=== PATIENT | female | born 1955 | race Caucasian/White ===

== ENCOUNTER → 2023-09-07 10:03 | Outpatient (REF) | payer OTHER, MEDICARE, SELFPAY | LOC: RAD 10:03 | PROVIDERS: ATTENDING PHYSICIAN Internal Medicine Rheumatology; FAMILY PHYSICIAN Nurse Practitioner Family; REFERRING PHYSICIAN Internal Medicine | DX: M47.816 Spondylosis without myelopathy or radiculopathy, lumbar region (principal); M54.50 Low back pain, unspecified | CPT/HCPCS: 72110 ==

== ENCOUNTER → 2023-10-18 07:59 | Outpatient (REF) | payer OTHER, MEDICARE, SELFPAY | LOC: RAD 07:59 | PROVIDERS: ATTENDING PHYSICIAN Nurse Practitioner Family | DX: M85.80 Other specified disorders of bone density and structure, unspecified site (principal); M81.0 Age-related osteoporosis without current pathological fracture | CPT/HCPCS: 77080 ==

== ENCOUNTER → 2024-02-24 07:30 | Outpatient (REF) | payer OTHER, SELFPAY | LOC: RAD 07:30 | PROVIDERS: ATTENDING PHYSICIAN Orthopaedic Surgery; FAMILY PHYSICIAN Nurse Practitioner Family | DX: Z96.642 Presence of left artificial hip joint (principal); M24.452 Recurrent dislocation, left hip | CPT/HCPCS: 73700 ==

== ENCOUNTER → 2024-08-14 12:08 | Outpatient (REF) | payer OTHER, SELFPAY | LOC: WDC 12:08 | PROVIDERS: ATTENDING PHYSICIAN Nurse Practitioner Family | DX: Z12.31 Encounter for screening mammogram for malignant neoplasm of breast (principal) | CPT/HCPCS: 77063; 77067 ==

== ENCOUNTER → 2024-08-21 09:50 | Outpatient (REF) | payer OTHER, SELFPAY | LOC: MRI 3T 09:50 | PROVIDERS: ATTENDING PHYSICIAN Otolaryngology | DX: H91.22 Sudden idiopathic hearing loss, left ear (principal) | CPT/HCPCS: 70553 ==

== ENCOUNTER 2024-09-04 10:54 | Outpatient (RCR) | payer OTHER, SELFPAY ==
[2024-08-14] MEDS: VENOFER 110 MG IV (14:08)
[2024-08-14 14:17] VITALS: BP 168/88
[2024-08-14 15:27] VITALS: BP 153/87
[2024-08-21 11:43] VITALS: BP 141/92
[2024-08-21] MEDS: VENOFER 110 MG IV (11:45)
[2024-08-21 13:03] VITALS: BP 146/84
[2024-08-27 08:01] VITALS: BP 135/87
[2024-08-27] MEDS: VENOFER 110 MG IV (08:17)
[2024-08-27 09:31] VITALS: BP 144/80
[2024-09-04 11:10] VITALS: BP 182/85
[2024-09-04] MEDS: VENOFER 110 MG IV (11:24)
[2024-09-04 13:00] VITALS: BP 143/83
== END 2024-09-05 09:16 | disposition home or self-care (01) ==
LOC: OID 10:54
PROVIDERS: ATTENDING PHYSICIAN Internal Medicine Hematology & Oncology
DX: D50.9 Iron deficiency anemia, unspecified (principal); Z79.01 Long term (current) use of anticoagulants
CPT/HCPCS: 96365; J1756

== ENCOUNTER 2024-09-11 10:10 | Outpatient (RCR) | payer OTHER, SELFPAY ==
[2024-09-11] MEDS: VENOFER 110 MG IV (10:42)
[2024-09-11 11:02] VITALS: BP 164/90
[2024-09-11 12:20] VITALS: BP 141/77
== END 2024-10-05 23:59 | disposition home or self-care (01) ==
LOC: OID 10:10
PROVIDERS: ATTENDING PHYSICIAN Internal Medicine Hematology & Oncology
DX: D50.9 Iron deficiency anemia, unspecified (principal); Z79.01 Long term (current) use of anticoagulants
CPT/HCPCS: 96365; J1756

== ENCOUNTER → 2024-09-19 14:15 | Outpatient (REF) | payer OTHER, SELFPAY | LOC: RAD 14:15 | PROVIDERS: ATTENDING PHYSICIAN Internal Medicine Hematology & Oncology; FAMILY PHYSICIAN Nurse Practitioner Family | DX: I82.402 Acute embolism and thrombosis of unspecified deep veins of left lower extremity (principal); D75.838 Other thrombocytosis; D50.9 Iron deficiency anemia, unspecified | CPT/HCPCS: 71275; 74177; Q9967 ==

== ENCOUNTER → 2024-09-26 10:24 | Outpatient (REF) | payer OTHER, SELFPAY | LOC: HWRCS 10:24 | PROVIDERS: ATTENDING PHYSICIAN Internal Medicine Cardiovascular Disease; FAMILY PHYSICIAN Nurse Practitioner Family | DX: I31.39 Other pericardial effusion (noninflammatory) (principal) | CPT/HCPCS: 93306 ==

== ENCOUNTER 2024-12-02 10:55 | Emergency (ER) | payer OTHER, SELFPAY ==
[2024-12-02 10:58] VITALS: BP 184/103
[2024-12-02 11:23] VITALS: BMI 24.7
--- NOTE | 2024-12-02 11:43 | ED.GENMED ---
History of Present Illness
General
Chief Complaint: Allergic Reaction
Source: patient
Exam Limitations: none
Time Seen by Provider: 12/02/24 11:19
History of Present Illness
History of Present Illness:
See MDM
Past History
Past History
ED Past Medical History: HTN, Psychiatric and Other (Pylonephritis, peritonitis, ileous, Sepsis)
ED Past Surgical History: Appendectomy, Orthopedic and Other
Social History
Tobacco: Non-smoker
Alcohol: None
Personal:
Living: with family
Employment: Employed ( ICU nurse)
Phy Exam
Physical Exam
Physical Exam:
See MDM
Course
Orders/Labs/Results
Orders:
Orders
12/02/24 11:43
Dexamethasone Sod Phosphate [Decadron] 10 mg IV NOW STA
12/02/24 11:49
Complete Blood Count/With Diff Urgent
Comprehensive Metabolic Panel Urgent
Abnormal Lab Results
12/02/24
11:49
WBC 12.6 H 10^3/uL
(4.8-10.8)
RDW 15.6 H %
(11.5-14.5)
Abs Immat Gran (auto) 0.1 H 10^3/uL
(0-0.05)
Absolute Neuts (auto) 11.0 H 10^3/uL
(1.4-6.5)
Neutrophils % 87.1 H %
(42.2-75.2)
Lymphocytes % 9.3 L %
(20.5-51.1)
Glucose 105 H mg/dl
(70-99)
12/02/24 11:49
12/02/24 11:49
Vital Signs
Initial and Last Documented VS:
Initial Vital Signs
Temp Pulse Resp BP Pulse Ox
98.3 F 81 18 184/103 94
12/02/24 10:58 12/02/24 10:58 12/02/24 10:58 12/02/24 10:58 12/02/24 10:58
Last Documented Vital Signs
Temp Pulse Resp BP Pulse Ox
98.3 F 81 18 128/80 97
12/02/24 10:58 12/02/24 10:58 12/02/24 10:58 12/02/24 12:00 12/02/24 12:01
MDM/Problems Addressed
Differential Diagnosis Includes:
HPI and MDM Narrative:
69-year-old female presenting with generalized rash. She noted a few days ago and was seen in urgent care. She was started on steroids which seem to help. She followed up with her PCP and was placed on a higher dose of steroid. She is currently
tapering her meds and the rash is gotten worse. She denies any new detergents or other possibilities for allergic reaction. However, she was placed on Coreg as of July. Although less likely, we did discuss that this could be the issue. Her
blood pressure has been somewhat uncontrolled and she was recently started on losartan as well. However, the losartan was introduced after the rash started. In attempt to not make too many medication changes, we discussed holding off the Coreg for
now and sticking with losartan. Will increase steroids again. She has no red flags as far as the rash goes. No mucosal membrane involvement and no fevers.
Physical exam
General: Well appearing and non-toxic
HEENT: protecting airway
Neck: appears supple
CV: No evidence of cyanosis
Resp: No accessory muscle use
Abd: Non-distended
Extremities: No deformities
Neuro: alert
Psych: Normal affect
Skin: Urticaria to extremities, flank and back
Problems Addressed including Acute and Chronic Conditions affecting care:
1. Urticarial rash
Acuity: acute
Prognosis: stable
Details: Likely allergic. Will increase the steroids again. Discussed follow-up with dermatology
Updates
On reassessment, patient feeling better and feels comfortable at home. She feels comfortable going home and will follow-up with dermatology
Differential Diagnosis (but not limited to): Urticaria, allergic reaction, medication reaction
Testing considered: Autoimmune testing but discussed this should be done as an outpatient
Drug therapy (if applicable): OTC meds, please see d/c instruction regarding Rx drugs
Amount and/or Complexity of Data Reviewed
Clinical info obtained from: Patient
External data reviewed: N/A
Labs I independently reviewed (but not limited to): Expected leukocytosis given recent steroid use
Radiology: N/A
Pulse Ox: not hypoxic
EKG independently reviewed: N/A
Cop Winder: N/A
Critical Care: N/A
Risk of Complication:
Social Determinants of health: Good social support
Discussed with other providers: N/A
Escalation of Care includes Admit/Obs: After being observed in the Emergency Department, pt stable for discharge.
Occasional wrong word or 'sound a like' substitutions may have occurred due to the inherent limitations of voice recognition software. Read the chart carefully and recognize, using context, where substitutions have occurred.
*Critical Care Note
Total Time (30-74mins, 75-104mins- exclusive of procedures): Not Applicable
ED Attending Note
-
Portions of this chart may have been created with voice recognition software.� Occasional wrong word or��sound alike� substitutions may have occurred due to the inherent limitations of voice recognition software.
Discharge Plan
Departure
Patient Disposition: Home (Routine Discharge)
Date of Disposition: 12/02/24
Time of Disposition: 13:30
Patient with high blood pressure during this ER visit?: No
Discharge Problem:
Acute urticaria
Instructions: Arjun (DC)
Prescriptions:
New
prednisone 10 mg tablet
See Rx Instructions .ROUTE .COMPLEX Qty: 45 0RF
Rx Instructions:
5 tabs day 1-3, 4 tabs day 4-6, 3 tabs day 7-9, 2 tabs day 10-12, 1 tab day 13-15
No Action
loratadine 10 MG tablet
10 mg PO DAILY Qty: 0
fluticasone propionate 1 SPRAY spray,suspension
2 spray intranasal DAILY
acyclovir 800 MG tablet
800 mg PO DAILY
cholecalciferol (vitamin D3) 2,000 UNITS tablet
2,000 unit PO DAILY
multivitamin Tablet
1 tab PO DAILY
buspirone 15 mg Tablet
15 mg PO DAILY
Linzess 290 mcg Capsule
290 mcg PO DAILY
magnesium 500 mg Tablet
500 mg PO MOWEFR
levothyroxine 25 mcg Tablet
25 mcg PO DAILY
buspirone 7.5 mg Tablet
7.5 mg PO DAILY@1400
melatonin 5 mg Tablet
5 mg PO HS
ascorbic acid (vitamin C) [Vitamin C] 1,000 mg Tablet
1,000 mg PO DAILY
cyclobenzaprine 5 mg Tablet
5 mg PO TID
pantoprazole [Protonix] 40 mg tablet,delayed release (DR/EC)
40 mg PO DAILY Qty: 30 0RF
acetaminophen [Tylenol Extra Strength] 500 mg Tablet
1,000 mg PO QID Qty: 0 0RF
Referrals:
Deya Marrero CRNP [Family Provider] -
Activity Restrictions/Additional Instructions:
Please call the automation software engineer for evaluation. Please return for worsening symptoms.
Although Coreg may not be the cause, we are pausing it for now. Please take the losartan daily. If your blood pressure is still increasing despite the 25 mg, you can increase to 50 mg a day.
Interventions
Interventions:
*Risk Screen - Suicide Last Done: 12/02/24 10:58
*General Assessment Last Done: 12/02/24 10:58
*Neglect/Abuse Screening Last Done: 12/02/24 10:58
*ED- Fall Risk Assessment Last Done: 12/02/24 11:23
*ED COVID-19 Vaccine History Last Done: 12/02/24 11:28
ED- Cardiac Assessment Last Done: 12/02/24 11:23
ED- Pulmonary Assessment Last Done: 12/02/24 11:23
ED-Skin Assessment Last Done: 12/02/24 11:23
Discharge Date and Time
Print Language: GREEK
[2024-12-02] MEDS: DECADRON 10 MG IV (11:50)
[2024-12-02 11:57] VITALS: BP 143/82
[2024-12-02 12:00] VITALS: BP 128/80
[2024-12-02 12:03] LABS: % Eosinophils 0.2 % (0-6); % Immature Granulocytes 0.5 % (0-0.5); % Lymphocytes 9.3 % (20.5-51.1); % Monocytes 2.9 % (1.7-9.3); % Neutrophils 87.1 % (42.2-75.2); Absolute Immature Granulocytes 0.1 10^3/uL (0-0.05); Absolute Lymphocytes 1.2 10^3/uL (1.2-3.4); Absolute Monocytes 0.4 10^3/uL (0.1-0.6); Hematocrit 37.9 % (37.0-47.0); Hemoglobin 13.1 g/dL (12.0-16.0); Mean Corp Hgb Conc. 34.6 g/dL (33.0-37.0); Mean Corpuscular Hgb 30.4 pg (27.0-31.0); Mean Corpuscular Volume 87.9 fL (81.0-99.0); Mean Platelet Volume 7.8 fL (7.4-10.4); Nucleated Red Blood Cells % 0 %; Platelet Count 320 10^3/uL (130-400); Red Blood Cell Count 4.31 10^6/uL (4.20-5.40); Red Cell Dist. Width 15.6 % (11.5-14.5); White Blood Cell Count 12.6 10^3/uL (4.8-10.8)
[2024-12-02 12:15] LABS: ALT (SGPT) 17 U/L (0-35); AST (SGOT) 19 U/L (14-36); Alkaline Phosphatase 73 U/L (38-126); Blood Urea Nitrogen 15 mg/dl (7-17); Calcium 9.7 mg/dl (8.4-10.2); Carbon Dioxide 26 mmol/L (22-30); Chloride 102 mmol/L (98-107); Estimated Creatinine Clearance 97 ml/min; Glucose 105 mg/dl (70-99); Potassium 4.3 mmol/L (3.5-5.1); Sodium 136 mmol/L (135-145); Total Bilirubin 0.8 mg/dl (0.2-1.3); Total Protein 6.9 g/dl (6.3-8.2); eGFR > 60.00
== END 2024-12-02 13:45 | disposition home or self-care (01) ==
LOC: EMR 10:55
PROVIDERS: EMERGENCY PHYSICIAN Student in an Organized Health Care Education/Training Program; FAMILY PHYSICIAN Nurse Practitioner Family
DX: L50.9 Urticaria, unspecified (principal); I10 Essential (primary) hypertension; Z90.49 Acquired absence of other specified parts of digestive tract
CPT/HCPCS: 99283; 96374; 80053; 85025

== ENCOUNTER → 2025-01-01 14:27 | Outpatient (REF) | payer OTHER, SELFPAY | LOC: HWRAD 14:27 | PROVIDERS: ATTENDING PHYSICIAN Registered Nurse; FAMILY PHYSICIAN Nurse Practitioner Family | DX: R22.42 Localized swelling, mass and lump, left lower limb (principal) | CPT/HCPCS: 93971 ==

== ENCOUNTER → 2025-03-11 08:26 | Outpatient (REF) | payer OTHER, SELFPAY | LOC: HWRAD 08:26 | PROVIDERS: ATTENDING PHYSICIAN Nurse Practitioner Primary Care; FAMILY PHYSICIAN Nurse Practitioner Family | DX: I82.402 Acute embolism and thrombosis of unspecified deep veins of left lower extremity (principal); D68.9 Coagulation defect, unspecified; I26.99 Other pulmonary embolism without acute cor pulmonale; Z86.711 Personal history of pulmonary embolism; D50.9 Iron deficiency anemia, unspecified | CPT/HCPCS: 93971 ==

== ENCOUNTER 2025-04-24 15:22 | Observation (INO) | payer OTHER, SELFPAY ==
[2025-04-24] VITALS (8 sets, daily range): BP systolic 104–169; BP diastolic 63–100; BMI 22.6
--- NOTE | 2025-04-24 13:25 | CON.NEURO4 ---
Addendum entered and electronically signed by Kel Perez MD 04/24/25 15:57:
Studies reviewed.
I have personally examined the patient. I reviewed and agree with the RUG WEAVER's Note.
My addenda:
Awake, alert, interactive. No acute distress.
Speech intact. Difficulty with recalling the month and date of the month. Unable to recall recent events in her family.
Follows 2-step requests w/o difficulty. No tremor.
Extra-ocular movements grossly intact.
Facial movements full and symmetric. Hearing intact to normal conversational volume.
Normal UE movements bilaterally.
Neck: full ROM.
Chest: no dyspnea
Heart: no JVD
Ext: (-) Clubbing, (-) Cyanosis, (-) Edema
IMPRESSIONS/RECOMMENDATIONS:
Abrupt onset of change in mental status with difficulty with recall.
Most likely due to transient global amnesia, DDX HTN-wesley encephalopathy
supportive care
continue DOAC
Check MRI of brain due to the patient's prior history of DVT and need for anticoagulation leading to the possibility of acute ischemic stroke which is less likely especially based on unremarkable CT perfusion results
Check CT of head, CT angiogram head and neck, and CT perfusion; all were performed and unremarkable
D/W patient / family / nursing
All questions answered.
Will continue to follow patient.
Original Note:
Documented by User: Lisa Del Cid NP 04/24/25 15:20
Consultation - Neurology 4
-
CONSULTING PHYSICIAN: Kel Perez MD
REFERRING PHYSICIAN: ER/Dr. Taylor
DICTATED BY: NALINI Salinas
DATE/TIME OF REQUEST: 04/24/25
DATE/TIME OF CONSULTATION: 04/24/25
Reason for Consultation: Confusion
History of Present Illness:
This is a 70-year-old right-handed female with a PMH of L THR revision in 05/2024 complicated by DVT/PE on apixaban who has presented to the hospital with report of confusion. Patient's spouse reports that she was at her baseline earlier today when
she went to take a nap around 1200. She woke up from the nap around 1250 and he reports that she was completely disoriented. She couldn't recall what day/month it is, that her spouse's mother over the weekend, or why he was home
prompting him to call 911. Blood pressure on arrival was elevated around 190/100. CT head, CTA head/neck, CT perfusion were obtained on arrival and are negative for any acute abnormalities. She is not a candidate for TNK/IAT due to NIHSS 1 and last
dose of apixaban this morning. She notes a bifrontal headache. She denies any dizziness, vision changes, speech/swallow difficulty, numbness, and weakness. She is repeating the same questions to staff. Her reports that she has not missed any
doses of her apixaban. Her mother in law this past weekend and her son also got one week ago.
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
Surgical History: appendectomy, cervical discectomy, L THR x2 revisions, L TKR, R THR, L thumb ORIF, cardiac ablation, ethmoidectomy
Family History: Reviewed and noncontributory.
Social History: Retired ICU nurse. Former alcohol in remission. Denies tobacco and illicit drug use.
Allergies: Bee venom.
Home Medications: See below.
Review of Symptoms:
Patient denies any fever, headache, chest pain, shortness of breath, GI or symptoms.
�Per the HPI.�All systems are reviewed negative except above.
Physical Exam:
The patient is afebrile, abdomen is nondistended, breathing is unlabored, skin is warm and dry, no edema.
NIH Stroke Scale:
I performed the NIH stroke scale on the patient on 04/24/25 at 1320. The patient scored 1 point on the NIH stroke scale assessment, which were assigned as follows: See below.
Neurologic Examination:
The patient is awake, alert and oriented to person, place, and year. Not month or next/most recent holidays. Can state her birthday, address, former profession. She is able to follow commands and answer questions appropriately. There is no aphasia
or dysarthria. On cranial nerve assessment, pupils are 3 mm bilateral, round and reactive to light and accommodation. Visual tidwell are full. Extraocular movements are intact. Facial sensations are intact and bilaterally symmetrical, there is no
facial asymmetry. Hearing is intact bilaterally to normal conversation volume. Tongue palate and uvula are midline. Sternocleidomastoid strengths are full bilaterally. Motor strengths are 5/5 bilateral upper and lower extremities on medical research
[place] scale. There is no drift or involuntary movement noted. Deep tendon reflexes are 2+ bilateral upper and lower extremities and Babinski is absent bilaterally. There was no extinction noted on double simultaneous stimulation. Coordination is
intact by finger to nose bilaterally.
Lab Results: See below.
Neuro Imaging:
1. CT Head 04/24/25: Unremarkable unenhanced CT of the brain ASPECT score: 10.
2. CTA head/neck 04/24/25: No significant vascular occlusion, aneurysm or dissection.
3. CT Perfusion 04/24/25: CBF 0, Tmax 0.
Differentials for the patient's presentation include:
1. Change in mental status likely due to transient global amnesia or hypertensive encephalopathy. Small ischemic stroke possible but less likely.
Patient has the following risk factors for their symptoms: HTN urgency, recent major events, hx dvt/PE
IV Tenecteplase/IAT candidacy: She is not a candidate for TNK/IAT due to NIHSS 1 and last dose of apixaban this morning.
Recommendations:
-MRI brain noncontrast pending.
-Continue home apixaban.
-Goal normotension.
-NIHSS and neurological checks per unit guidelines.
-Provide patient with a stroke education packet.
-Checking blood work for metabolic abnormalities.
Discussed patient care with: Dr. Perez, the patient, patient's spouse
NIH Stroke Score
Subsequent NIH Scale
Date of Subsequent NIH Scale: 04/24/25
Time of Subsequent NIH Scale: 13:20
NIH Stroke Score
Level of Consciousness: 0 - Alert
LOC Questions: 1-Answers one correctly
LOC Commands: 0-Performs both correctly
Best Horizontal Gaze: 0-Normal
Visual Tidwell: 0=Normal, no visual loss
Facial Palsy: 0=Normal, symmetrical
Motor - Right Arm: 0=No drift 10 seconds
Motor - Left Arm: 0=No drift 10 seconds
Motor - Right Le-No drift 5 seconds
Motor - Left Le-No drift 5 seconds
Limb Ataxia: 0-Absent
Sensation: 0-Normal
Best Language: 0-No aphasia
Dysarthria: 0-Normal
Extinction and Inattention: 0-No abnormality
NIH Total Score:: 1
Modified [place] (mRS) Score
Modified [place] Scale (mRS): Moderate disability. Requires some help, able to walk unassisted.
Score: 3
Alteplase Contraindication
Inclusion and Exclusion criteria reviewed: Yes
Reasons for NON-Tx with Thrombolytics ABSOLUTE Exclusions: Patient taking oral anticoagulant and last dose within 48 hours
IAT Contraindications: Imaging doesn't show large vessel occlusion as cause of stroke
Vital Signs and Labs
-
Vital Signs and Labs:
Vital Signs
Pulse Resp BP Pulse Ox
85 19 154/99 95
04/24/25 14:45 04/24/25 14:45 04/24/25 14:15 04/24/25 14:00
Lab Results
04/24/25 13:59
04/24/25 13:59
Sodium 128 mmol/L (135-145) L 04/24/25 13:59
Potassium 4.2 mmol/L (3.5-5.1) 04/24/25 13:59
BUN 14 mg/dl (7-17) 04/24/25 13:59
Glucose 90 mg/dl (70-99) 04/24/25 13:59
Calcium 9.2 mg/dl (8.4-10.2) 04/24/25 13:59
LDL Cholesterol, Calc 65 mg/dl 04/24/25 13:59

Documented by User: Kel Perez MD 04/24/25 15:35
NIH Stroke Score
NIH Stroke Score
NIH Total Score:: 1
Modified [place] (mRS) Score
Score: 3
[2025-04-24 13:31] LABS: Glucose - Point of Care 97 mg/dl (70-99)
--- NOTE | 2025-04-24 13:35 | ED.CVA ---
History of Present Illness
General
Chief Complaint: CVA/TIA Symptoms
Source: patient, spouse and ambulance crew
Exam Limitations: none
Time Seen by Provider: 04/24/25 13:30
Nursing documentation reviewed up to this point in time: agreed with
Onset of Stroke Symptoms
Onset of symptoms known: No
Time pt last seen normal is known: Yes
Date last time pt seen normal: 04/24/25
Time last time pt seen normal: 12:30
History of Present Illness
History of Present Illness:
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 EMS as well as provide collateral history. Patient apparently
was in her normal state of health when she woke up this morning. Laid down for a nap around 12:30 PM and woke up 30 to 40 minutes later and says that she was very confused. He describes that she could not remember the day of the week or
the month, could not remember major events including the marriage of her son this past . This is a large departure from her baseline, EMS was called to bring her to the hospital. On arrival here patient admits that she still has some memory
lapse�cannot recall events of this morning, cannot tell us the month. She does have a headache. She denies any nausea. She denies any change in her vision or speech, weakness or numbness in her extremities. Denies any other acute complaints.
Review of medication list shows no blood thinners.
Past History
Past History
ED Past Medical History: HTN, Psychiatric and Other (Pylonephritis, peritonitis, ileous, Sepsis)
ED Past Surgical History: Appendectomy, Orthopedic and Other
Social History
Tobacco: Non-smoker
Alcohol: None
Personal:
Living: with family
Employment: Employed ( ICU nurse)
Review of Systems
Review of Systems
All Other Systems: ROS reviewed and negative except as documented in HPI and ROS
Constitutional: Denies fever
Respiratory: Denies trouble breathing
Cardiac: Denies chest pain
ABD/GI: Denies abdominal pain or nausea
: Denies flank pain
Musculoskeletal: Denies neck pain or back pain
Neurological: Reports headache; Denies dizzy, weakness or numbness
Phy Exam
Physical Exam
Physical Exam:
General: Awake, alert, oriented x2; no acute distress
Head: Normocephalic, atraumatic
Eyes: Conjunctiva normal, EOMI, pupils equal round reactive to light bilaterally
Throat: Airway intact, handling secretions
Neck: Trachea midline, supple without meningismus
Lungs: Clear to auscultation bilaterally, no wheezing, rales, rhonchi
Heart: Regular rate and rhythm, no murmurs, gallops, or rubs
Neuro: Cranial nerves intact, speech fluid without dysarthria or aphasia, motor and sensory intact in all extremities
Extremities: No edema in extremities, equal pulses in all extremities
Scores
NIH Stroke Score
Level of Consciousness: 0 - Alert
LOC Questions: 1-Answers one correctly
LOC Commands: 0-Performs both correctly
Best Horizontal Gaze: 0-Normal
Visual Tidwell: 0=Normal, no visual loss
Facial Palsy: 0=Normal, symmetrical
Motor - Right Arm: 0=No drift 10 seconds
Motor - Left Arm: 0=No drift 10 seconds
Motor - Right Le-No drift 5 seconds
Motor - Left Le-No drift 5 seconds
Limb Ataxia: 0-Absent
Sensation: 0-Normal
Best Language: 0-No aphasia
Dysarthria: 0-Normal
Extinction and Inattention: 0-No abnormality
NIH Total Score:: 1
Thrombolytic Contraindication
Inclusion and Exclusion criteria reviewed: Yes
Reasons for NON-Tx with Thrombolytics ABSOLUTE Exclusions: Patient/family refused
IAT Contraindications: NIHSS < 6
Heart Failure Risk
Heart Failure Risk Score: Not Applicable
Heart Score for Chest Pain Patients
STEMI patient?: Not applicable
Withdrawal Assessment of Alcohol
Withdrawal Assessment Completed?: Not applicable
Course
Orders/Labs/Results
Orders:
Orders
04/24/25 13:30
Electrocardiogram (*1) Stat
Reason for Study: Other
Other Reason for Exam: neuro symptoms
CT BRAIN PERF STROKE ALERT Urgent
Comment:
Reason For Exam: acute onset confusion
CT HEAD STROKE ALERT W/o Cont Urgent
Comment:
Reason For Exam: acute onset confusion
CT HEAD/NECK ANG STROKE ALERT Urgent
Comment:
Reason For Exam: acute onset confusion
Bedside Glucose- Treatment ONCE
Cardiac Monitoring- Treatment ONCE
EKG- Treatment ONCE
04/24/25 13:41
Add On- LAB Routine
Tests Added?: folate, ferritin, B12, lipid panel, hbA1c, ESR
04/24/25 13:59
Alcohol Urgent
Cardiovascular Evaluation Urgent
Comment: ADD ON
Complete Blood Count/With Diff Urgent
Comprehensive Metabolic Panel Urgent
Erythrocyte Sed Rate Urgent
Comment: ADD ON
Ferritin Urgent
Comment: ADD ON
Folate Urgent
Comment: ADD ON
Glycohemoglobin (HgbA1c) Urgent
Magnesium Urgent
TSH Reflex To Free T4 Urgent
Vitamin B12 Urgent
Comment: ADD ON
04/24/25 14:19
Drug Screen, Urine [Urine Drug Abuse Screen] Urgent
Date Specimen was Collected: 04/24/25
Time Specimen was Collected: 14:19
Osmolality, Random Urine Urgent
Date Specimen was Collected: 04/24/25
Time Specimen was Collected: 14:19
Urinalysis Reflex To Culture Urgent
Date Specimen was Collected: 04/24/25
Time Specimen was Collected: 14:19
Urine Microscopic Reflex Cult Urgent
Urine Sodium Urgent
Date Specimen was Collected: 04/24/25
Time Specimen was Collected: 14:19
04/24/25 14:52
Add On- LAB Urgent
Tests Added?: urine sodium, urine osmol
04/24/25 14:56
Acetaminophen [Tylenol] 1,000 mg PO NOW STA
04/24/25 14:57
Admit/Transfer Patient As Directed
Co-Sign Provider:
Level of Care: Observation services
Assign to:: Telemetry
Physician / Group: Marguerite Crews
Diagnosis: Transient Global Amnesia; TIA
Reason for Telemetry: CVA/TIA
Date to Stop Telemetry: 04/27/25
Time to Stop Telemetry: 11:00
PRN Pain Medication Management As Directed
May give lesser potent ordered pain med per pt: Yes
preference::
Protocol:: Medication orders for pain may be administered in a
manner that supports deferring to patient preference
when the pt is:
- Requesting an ordered lesser potent pain medication.
Least to most potent pain medications are defined
as: acetaminophen < NSAID < tramadol < opioids
(morphine, oxycodone, hydromorphone).
- Requesting a lesser dose of the same medication IF
ORDERED.
- Requesting a less intrusive route of administration
if both routes are prescribed by the provider (PO <
IV).
04/24/25 14:58
Code Status As Directed
Resuscitation Status: Full Code
04/24/25 15:10
MR Brain Without Contrast Routine
Comment:
Reason For Exam: stroke/TIA
Recent pill cam endoscopy?: No
04/24/25 17:22
Acetaminophen [Tylenol] 650 mg PO Q4HPRN PRN
Polyethylene Glycol Powder [Miralax] 17 grams PO DAILYPRN PRN
04/24/25 17:22
Case Management Consult ONCE
Case Management Consult: Discharge Planning
Comment: stroke/tia
DIETARY IP CONSULT Routine
Reason for Consult: stroke/TIA
NEUROLOGY CONSULT Urgent
Consulting Provider: Kel Perez
Was physician already notified: Yes
Insurance Premium Auditor Urgent
Activity As Directed
Activity Level: As Tolerated
NIH Stroke Scale As Directed
Directions: Per protocol
Comment: every shift and with any change in condition or mental status
Neurological Checks As Directed
Frequency: q4h
Additional Instructions:: q4h x 24h upon admission to the floor, then qshift & with any change in condition
and mental status
Patient Education As Directed
Type: Stroke education packet
Comment: provide to patient and family
Swallow Screening CVA/TIA ONLY As Directed
Comment: NPO until swallowing screening completed
If patient FAILS swallow screening:: NPO, Speech Therapy consult, Aspiration Precautions
If patient PASSES swallow screening, diet:: Cholesterol Lowering
Comments: 48 oz fluid restriction
Above diet order entered?: Yes- passed screening
Vital Signs As Directed
Frequency: Per unit guidelines
Vital Signs As Directed
Frequency: Per unit guidelines
Ot Eval And Treat Routine
Pt Eval And Treat Routine
Activity Level: As Tolerated
Speech Therapy Eval & Treat Routine
04/24/25 18:00
Buspirone [Buspar] 7.5 mg PO DAILY@1800
04/24/25 20:00
Apixaban [Eliquis] 2.5 mg PO BID
04/24/25 22:00
Melatonin 5 mg PO HS
04/25/25 06:00
Basic Metabolic Panel IN AM
Complete Blood Count/No Diff IN AM
Magnesium IN AM
Levothyroxine [Synthroid] 25 mcg PO DAILY@0600
Linaclotide [Linzess] 290 mcg PO DAILY@0600
04/25/25 08:00
Acyclovir [Zovirax] 800 mg PO DAILY
Buspirone [Buspar] 15 mg PO DAILY
Loratadine [Claritin] 10 mg PO DAILY
Pantoprazole [Protonix] 20 mg PO DAILY
04/27/25 11:00
DC Protocol for Telemetry ONCE
Abnormal Lab Results
04/24/25 04/24/25
13:59 14:19
RBC 3.99 L 10^6/uL
(4.20-5.40)
Hct 35.4 L %
(37.0-47.0)
Sodium 128 L mmol/L
(135-145)
Chloride 97 L mmol/L
(98-107)
Creatinine 0.5 L mg/dL
(0.6-1.0)
Ur Occult Blood Reflex 1+ A
(Negative)
Urine Bacteria (Reflex) Few A
(Negative)
Urine Osmolality 170 L mOsm/kg
(300-900)
04/24/25 13:59
04/24/25 13:59
Vital Signs
Initial and Last Documented VS:
Initial Vital Signs
Pulse BP Pulse Ox
91 165/94 95
04/24/25 13:27 04/24/25 13:27 04/24/25 13:27
Last Documented Vital Signs
Temp Pulse Resp BP Pulse Ox
37.0 C 100 16 139/91 96
04/24/25 19:51 04/24/25 19:51 04/24/25 19:51 04/24/25 19:51 04/24/25 19:51
MDM/Problems Addressed
Differential Diagnosis Includes:
CVA/brain bleed, seizure, TGA, drug/alcohol use
MDM/Problems Addressed:
70-year-old female presents for evaluation of acute onset confusion�laid down for nap around 12:30 PM which is last known normal. She is markedly hypertensive but has otherwise normal vitals. Physical exam as above. She was called as a
prehospital stroke alert, neurology at bedside on arrival. NIH stroke scale 1. Plan to send for CT head. Send basic labs, check EKG. Monitor closely reassess after the above.
CT imaging showed no acute abnormalities. Discussed at length with patient and neurology at bedside. Blood pressure continues to improve without intervention will monitor closely for now but hold off on acute antihypertensives. Neurology suspects
that this is likely a transient global amnesia however given continued mild confusion will admit for continued observation, MRI brain and further workup as indicated thereafter. Case discussed with hospitalist to facilitate admission.
Acute Exacerbation and/or Progression of Chronic Illness:
Acutely hypertensive
Acute Exacerbation and/or Progression of Chronic Illness: HTN
*Radiology
Radiology exam reviewed: preliminary read by ED provider and radiology read reviewed
*Pulse Oximetry
Patient hypoxic: no (99%)
*Critical Care Note
Total Time (30-74mins, 75-104mins- exclusive of procedures): Not Applicable
Data Reviewed
Review of Other/Old Records Reveals: Labs and Records
Source: patient and records
Patient Management
Discussion with other providers: Hospitalist (Discussed with hospitalist), Business Continuity Coordinator (Discussed with neurology) and Radiologist (Discussed with radiologist)
Escalation/DeEscalation of care consider admission/obs:
Admission indicated
ED Attending Note
-
Portions of this chart may have been created with voice recognition software.� Occasional wrong word or��sound alike� substitutions may have occurred due to the inherent limitations of voice recognition software.
Discharge Plan
Departure
Patient Disposition: Admit
Date of Disposition: 04/24/25
Time of Disposition: 14:06
Admit to doctor: Eleonora
Presentation/result/management discussed w/ accepting MD/DO: Hospitalist
Discharge Problem:
Acute confusion
Interventions
Interventions:
*Risk Screen - Suicide Last Done: 04/24/25 14:00
*General Assessment Last Done: 04/24/25 14:00
*Neglect/Abuse Screening Last Done: 04/24/25 14:00
*ED- Fall Risk Assessment Last Done: 04/24/25 14:00
*ED COVID-19 Vaccine History Last Done: 04/24/25 18:00
*Nursing Disposition Last Done: 04/24/25 17:20
ED- Pulmonary Assessment Last Done: 04/24/25 14:00
ED- Neurological Assessment Last Done: 04/24/25 14:00
ED- Cardiac Assessment Last Done: 04/24/25 14:00
ED Swallowing Screen Last Done: 04/24/25 14:00
Discharge Date and Time
Discharge Date/Time: 04/24/25 17:20
[2025-04-24 14:13] LABS: Hematocrit 35.4 % (37.0-47.0); Hemoglobin 12.1 g/dL (12.0-16.0); Mean Corp Hgb Conc. 34.2 g/dL (33.0-37.0); Mean Corpuscular Volume 88.7 fL (81.0-99.0); Nucleated Red Blood Cells % 0 %; Platelet Count 307 10^3/uL (130-400); Red Cell Dist. Width 13.9 % (11.5-14.5)
--- NOTE | 2025-04-24 14:13 | HPS.HSE ---
Family Physician
-
Family Physician: Russell Turcios
Chief Complaint
-
confusion
History of Present Illness
Ms. Daily Durham is a 70 yo woman with hx SVT s/p ablation (2000), hypothyroidism, left THR revision presents to the ER with confusion.
Patient woke up in her usual state of health this morning. She laid down for a nap around 12:30 then woke up 30-40 minutes later with confusion, with short term memory loss including what she had for breakfast and the recent marriage of her son
this past weekend. knew that patient wasn't acting herself and therefore brought her to the ER. denies slurred speech. No focal weakness. Her gait was normal.
During my interview with patient she states that her memory is already improving. She can now remember details from the wedding and earlier this morning. However, she does not yet feel completely herself.
She had no recent fevers, cough, congestion. No chest pain. No nausea, vomiting and normal appetite. She states she drinks a lot of water and tea throughout the day.
Medical History
Past Medical History
Past Medical History: Reports Hypothyroidism and Other (SVT s/p ablation (2000), hypothyroidism, left THR revision )
Past Surgical History: Reports Orthopedic
Social History
Tobacco: Non-smoker
Alcohol: None
Family History
Family History: Not pertinent
Allergies / Home Medications
Allergies reflects when Allergies were last updated in [facility].
Home Medications with original date entered in [facility]
Allergy/Medication List:
Allergies
Allergy/AdvReac Type Severity Reaction Status Date / Time
bee venom protein (honey bee) Allergy Hives Verified 12/02/24 10:58
Home Medications
loratadine 10 mg tablet 10 mg PO DAILY ##0 12/21/12
fluticasone propionate 50 mcg/actuation nasal spray,suspension 2 spray intranasal DAILY 09/17/15
acyclovir 800 mg tablet 800 mg PO DAILY 09/15/17
cholecalciferol (vitamin D3) 50 mcg (2,000 unit) tablet 2,000 unit PO DAILY 09/15/17
buspirone 15 mg tablet 15 mg PO DAILY 03/12/22
linaclotide 290 mcg capsule (Linzess) 290 mcg PO DAILY 03/12/22
buspirone 7.5 mg tablet 7.5 mg PO MOWEFR@1900 05/09/23
levothyroxine 25 mcg tablet 25 mcg PO DAILY 05/09/23
melatonin 5 mg tablet 5 mg PO HS 05/09/23
ascorbic acid (vitamin C) 1,000 mg tablet (Vitamin C) 1,000 mg PO DAILY 06/17/23
magnesium oxide 400 mg PO MOWEFR 04/24/25
pantoprazole 20 mg tablet,delayed release (Protonix) 20 mg PO DAILY 04/24/25
therapeutic multivitamin 1 tab PO DAILY 04/24/25
Review of Systems
-
History Source: Patient
A 12 point ROS was completed and negative except as noted: Yes
Physical Exam
Vital Signs
Vital Signs
Pulse BP Pulse Ox
91 165/94 95
04/24/25 13:27 04/24/25 13:27 04/24/25 13:27
Physical Exam
General: No Apparent Distress
HEENT: PERRLA
Respiratory: Clear; No Wheezes
Cardiac: S1/S2 and Regular Rhythm; No Murmur
GI: Soft, Non Tender and Non Distended
Musculoskeletal: No Edema
Skin: Warm and Dry; No Rash
Neuro: AO x 3
Psych: Calm
Laboratory Results
-
04/24/25 13:59
Data Reviewed
-
Diagnostic Radiology: Report Reviewed by me
Lab Data: Labs Reviewed by me
Impression/Plan
-
Ms. Daily Durham is a 70 yo woman with hx SVT s/p ablation (2000), hypothyroidism, left THR revision presents to the ER with confusion.
Triage VS: P 91, BP 165/94, SpO2 95%
LABS: WBC 6.9, Hg 12.1, PLT 307, Na 128, K+ 4.,2, Cl 97, Cr 0.5, Glucose 90, Ca 9.2, Mag 1.[address]
IMPRESSION:
Unremarkable unenhanced CT of the brain
HEAD/NECK CTA
IMPRESSION: No significant vascular occlusion, aneurysm or dissection.
Acute Confusion, concern for Global Transient Amnesia
-admit to observation, telemetry
-patient's memory has already improved since arriving to ER
-Head CT imaging above
-OK to hold off on aspirin per Neurology (patient is on Eliquis at home)
-MRI Brain
-Neuro checks
-PT/OT/ST
-Formal Neurology consult
Hyponatremia
-nothing on exam or history to suggest dehydration
-add on urine studies urine sodium, osmol
-fluid restrict for now
Hx DVT and PE
-continue INVENTORY SPECIALIST Eliquis 2.5mg PO BID
Hypothyroidism
-INVENTORY SPECIALIST Synthroid
Anxiety
-INVENTORY SPECIALIST Buspar
GERD
-INVENTORY SPECIALIST Protonix
DVT PPx: INVENTORY SPECIALIST Eliquis
FULL CODE
[2025-04-24 14:42] LABS: ALT (SGPT) 21 U/L (0-35); AST (SGOT) 26 U/L (14-36); Albumin 4.0 g/dl (3.5-5.0); Alkaline Phosphatase 96 U/L (38-126); Blood Urea Nitrogen 14 mg/dl (7-17); Calcium 9.2 mg/dl (8.4-10.2); Carbon Dioxide 25 mmol/L (22-30); Chloride 97 mmol/L (98-107); Estimated Creatinine Clearance 97 ml/min; Glucose 90 mg/dl (70-99); HDL Cholesterol 60 mg/dl; LDL Cholesterol, Calculated 65 mg/dl; Magnesium 1.8 mg/dl (1.6-2.3); Potassium 4.2 mmol/L (3.5-5.1); Sodium 128 mmol/L (135-145); Total Protein 6.7 g/dl (6.3-8.2); Very Low Density Lipoprotein 14 mg/dl (0-30); eGFR > 60.00
[2025-04-24 14:45] LABS: Urine Character Clear (Clear)
[2025-04-24 14:54] LABS: Urine Red Blood Cell 0-2 /HPF (0-2); Urine Squamous Cell 0-2 /LPF (Few); Urine White Cell 0-2 /HPF (0-5)
[2025-04-24] MEDS: TYLENOL 1000 MG PO (15:37)
[2025-04-24 17:17] LABS: Ferritin 255.0 ng/ml (11.1-264.0)
[2025-04-24 17:48] LABS: Folate 19.5 ng/ml (2.76-20); Vitamin B12 399 pg/ml (239-931)
--- NOTE | 2025-04-24 18:20 | PTCARENOTE ---
Pt received from ED and walked to bed from stretcher without assistance. Pt able to swallow without difficulty. MD made aware and cholesterol lowering diet ordered. NIH score 1 for mild L lower extremity ataxia. Pt AAOx3. VSS. Call charles in reach.
POC ongoing.
[2025-04-24] MEDS: SEROQUEL 75 MG PO (21:38)
[2025-04-24] MEDS: BUSPAR 7.5 MG PO (21:38)
[2025-04-24] MEDS: ELIQUIS 2.5 MG PO (21:38)
[2025-04-24] MEDS: MELATONIN 5 MG PO (21:39)
[2025-04-24] MEDS: TYLENOL 650 MG PO (21:39)
[2025-04-25 02:45] VITALS: BP 104/65
[2025-04-25 06:23] LABS: Hematocrit 37.1 % (37.0-47.0); Hemoglobin 12.5 g/dL (12.0-16.0); Mean Corp Hgb Conc. 33.7 g/dL (33.0-37.0); Mean Corpuscular Volume 89.0 fL (81.0-99.0); Platelet Count 295 10^3/uL (130-400); Red Cell Dist. Width 14.2 % (11.5-14.5)
[2025-04-25 06:51] LABS: Blood Urea Nitrogen 12 mg/dl (7-17); Calcium 9.7 mg/dl (8.4-10.2); Carbon Dioxide 26 mmol/L (22-30); Chloride 105 mmol/L (98-107); Estimated Creatinine Clearance 99 ml/min; Glucose 83 mg/dl (70-99); Magnesium 2.1 mg/dl (1.6-2.3); Potassium 4.2 mmol/L (3.5-5.1); Sodium 137 mmol/L (135-145); eGFR > 60.00
[2025-04-25 07:23] VITALS: BP 120/71
[2025-04-25] MEDS: LINZESS 290 MCG PO (07:51)
[2025-04-25] MEDS: COZAAR 25 MG PO (07:51)
[2025-04-25] MEDS: ELIQUIS 2.5 MG PO (07:52)
[2025-04-25] MEDS: CLARITIN 10 MG PO (07:53)
[2025-04-25] MEDS: ZOVIRAX 800 MG PO (07:53)
[2025-04-25] MEDS: SYNTHROID 25 MCG PO (07:53)
[2025-04-25] MEDS: BUSPAR 15 MG PO (07:53)
[2025-04-25] MEDS: PROTONIX 20 MG PO (07:54)
--- NOTE | 2025-04-25 08:53 | W.PN.HOSP.TC ---
Today's Communication/Plan
-
dc
Assessment / Plan
Assessment / Plan
Physical Exam
General: No Apparent Distress
HEENT: PERRLA
Respiratory: Clear; No Wheezes
Cardiac: S1/S2 and Regular Rhythm; No Murmur
GI: Soft, Non Tender and Non Distended
Musculoskeletal: No Edema
Skin: Warm and Dry; No Rash
Neuro: AO x 3
Psych: Calm
70 yo woman with hx SVT s/p ablation (2000), hypothyroidism, left THR revision presents to the ER with sudden onset of memory impairment
# Abrupt onset change in mental status mostly as memory impairment. due to transient global amnesia
Now back to baseline.
Seems back to baseline. The episode lasted short time.
No evidence of infection/ stroke
MRI no stroke
No fever or headache.
No hx of drug use.
d/w Dr Perez and DR Ramesh, decided to do Eliquis 5 mg bid instead of 2.5 mg BID, pt agreed.
Hyponatremia
Resolved
Hx DVT and PE
-continue LOAN INSPECTOR Eliquis 2.5mg PO BID, d/w primary hematology, increased Eliquis to 5 mg BID.
Repeat D-Dimer is 1.8, down from OP around 7.3.
Hypothyroidism
-LOAN INSPECTOR Synthroid
Anxiety/depression
-LOAN INSPECTOR BuSpar & Seroquel
GERD
-LOAN INSPECTOR Protonix
DVT PPx: LOAN INSPECTOR Eliquis
FULL CODE
Total discharge time spent to see the patient, examine the patient, review data and lab results, discuss discharge plan with patient, nursing staff around 65 minutes
Anticipated Discharge: Today
Subjective/Interval History
-
Date of Service: April 25, 2025
She feels back to normal
Objective Data
-
Labs:
Laboratory Results
04/25/25
05:47
WBC 4.4 L
Hgb 12.5
Hct 37.1
Plt Count 295
Sodium 137 D
Potassium 4.2
Chloride 105
Carbon Dioxide 26
BUN 12
Creatinine 0.5 L
Glucose 83
Calcium 9.7
Vital Signs:
Vital Signs
Temp Pulse Resp BP Pulse Ox
98.1 F 71 17 120/71 98
04/25/25 07:23 04/25/25 07:51 04/25/25 07:23 04/25/25 07:51 04/25/25 07:23
--- NOTE | 2025-04-25 09:35 | W.PN.NEURO.1 ---
Addendum entered and electronically signed by Kel Perez MD 04/25/25 11:31:
Studies reviewed
Patient is awake alert and interactive. Speech and naming are intact. No cognitive deficiencies
Moves extremities spontaneously without difficulty
No acute distress
No clubbing cyanosis or edema
Review of systems: No associated symptoms currently
Original Note:
Today's Communication / Plan
-
Check D-dimer
Would change the patient's apixaban dosing from 2.5 mg twice a day to 5 mg twice a day although there is no evidence by MRI of brain that the patient is experienced an ischemic lesion
Consider thiamine
Neuro Assessment/Plan
Assessment
Abrupt onset change in mental status, due to transient global amnesia. As is typical for this disorder, the disorder has self resolved
Plan
Check D-dimer
Would change the patient's apixaban dosing from 2.5 mg twice a day to 5 mg twice a day although there is no evidence by MRI of brain that the patient is experienced an ischemic lesion
Consider thiamine
Will follow as needed
Subjective/Objective
Subjective Data
Date of Service: April 25, 2025
Objective Data
Vital Signs
Temp Pulse Resp BP Pulse Ox
36.7 C 71 17 120/71 98
04/25/25 07:23 04/25/25 07:51 04/25/25 07:23 04/25/25 07:51 04/25/25 07:23
Lab Results
04/25/25 05:47
04/25/25 05:47
Sodium 137 mmol/L (135-145) D 04/25/25 05:47
Potassium 4.2 mmol/L (3.5-5.1) 04/25/25 05:47
BUN 12 mg/dl (7-17) 04/25/25 05:47
Glucose 83 mg/dl (70-99) 04/25/25 05:47
Calcium 9.7 mg/dl (8.4-10.2) 04/25/25 05:47
LDL Cholesterol, Calc 65 mg/dl 04/24/25 13:59
Vitamin B12 399 pg/ml (239-931) 04/24/25 13:59
Ur Buprenorphine Negative (Negative) 04/24/25 14:19
Patient Allergies
bee venom protein (honey bee) Allergy (Verified 12/02/24 10:58)
Hives
Past History
Past History
ED Past Medical History: HTN, Hypothyroidism, Psychiatric and Other (Pylonephritis, peritonitis, ileous, Sepsis, DVT, vitamin B12 deficiency, transient global amnesia April 2025, IBS, ruptured appendix, herpes simplex, osteoarthritis)
ED Past Surgical History: Appendectomy, Cardiac (Ablation), Orthopedic (Left hip replacement, cervical discectomy, left THR x 2, left thumb ORIF) and Other (Ethmoidectomy)
Social History
Tobacco: Non-smoker
Alcohol: None
Personal:
Living: with family
Employment: Employed ( ICU nurse)
Medications
-
Medications:
Generic Name Dose Route Start Last Admin
Trade Name Freq PRN Reason Stop Dose Admin
Acetaminophen 650 mg 04/24/25 17:22 04/24/25 21:39
Acetaminophen 325 Mg Tablet PO 05/22/25 17:21 650 mg
Q4HPRN PRN Administration
mild pain/GONZALES/temp> 100.4F
Acyclovir Sodium 800 mg 04/25/25 08:00 04/25/25 07:53
Acyclovir Sodium 800 Mg Tablet PO 05/05/25 07:59 800 mg
DAILY CHEVY Administration
Apixaban 2.5 mg 04/24/25 20:00 04/25/25 07:52
Apixaban (Eliquis) 2.5 Mg Tablet PO 05/22/25 19:59 2.5 mg
BID CHEVY Administration
Buspirone HCl 15 mg 04/25/25 08:00 04/25/25 07:53
Buspirone 5 Mg Tablet PO 05/23/25 07:59 15 mg
DAILY CHEVY Administration
Buspirone HCl 7.5 mg 04/24/25 18:00 04/24/25 21:38
Buspirone 5 Mg Tablet PO 05/22/25 17:59 7.5 mg
DAILY@1800 CHEVY Administration
Cyanocobalamin 1,000 mcg 04/25/25 10:30
Cyanocobalamin (Vitamin B-12) 500 Mcg Tablet PO 05/23/25 10:29
DAILY CHEVY
Levothyroxine Sodium 25 mcg 04/25/25 06:00 04/25/25 07:53
Levothyroxine 25 Mcg Tablet PO 05/23/25 05:59 25 mcg
DAILY@0600 CHEVY Administration
Linaclotide 290 mcg 04/25/25 06:00 04/25/25 07:51
Linaclotide 290 Mcg Capsule PO 05/23/25 05:59 290 mcg
DAILY@0600 CHEVY Administration
Loratadine 10 mg 04/25/25 08:00 04/25/25 07:53
Loratadine 10 Mg Tablet PO 05/23/25 07:59 10 mg
DAILY CHEVY Administration
Losartan Potassium 25 mg 04/25/25 08:00 04/25/25 07:51
Losartan 25 Mg Tablet PO 05/23/25 07:59 25 mg
DAILY CHEVY Administration
Melatonin 5 mg 04/24/25 22:00 04/24/25 21:39
Melatonin 5 Mg Tablet PO 05/22/25 21:59 5 mg
HS CHEVY Administration
Pantoprazole Sodium 20 mg 04/25/25 08:00 04/25/25 07:54
Pantoprazole 20 Mg Delayed Release Tablet PO 05/23/25 07:59 20 mg
DAILY CHEVY Administration
Polyethylene Glycol 17 grams 04/24/25 17:22
Polyethylene Glycol Powder 17 Grams Packet PO 05/22/25 17:21
DAILYPRN PRN
constipation
Quetiapine Fumarate 75 mg 04/24/25 22:00 04/24/25 21:38
Quetiapine 25 Mg Tablet PO 05/22/25 21:59 75 mg
HS CHEVY Administration
[2025-04-25] MEDS: VITAMIN B-12 1000 MCG PO (09:49)
[2025-04-25 10:06] VITALS: BP 117/77; BP 93/68; PULSE 101; PULSE 102; O2SAT 97; O2SAT 98
--- NOTE | 2025-04-25 10:19 | PTOTSP ---
Patient demonstrates safe and independent mobility, no skilled physical therapy needs at this time.
--- NOTE | 2025-04-25 10:21 | CM ---
Addendum entered by Priscilla Márquez 04/25/25 13:35:
Patient completed OBS/GAN form, patient present for transfer home, no needs at this time.
Original Note:
Patient seen at bedside on . Patient lives with her in a 2 story home. Patient has a cane at home and raised toilet seat. Patient stated that her PCP is Dr. Turcios and she uses the [facility] in [place]. Patient plan is for discharge
planning needs. CM will continue to follow for discharge planning needs.
Plan; home with no needs anticipated
[2025-04-25 10:45] VITALS: BP 115/72
[2025-04-25 12:39] LABS: D-Dimer 1.83 ug/mlFEU (0.00-0.50)
[2025-04-25 13:29] LABS: Glycohemoglobin (HgbA1c) 5.4 % (4.0-5.6)
--- NOTE | 2025-04-25 15:17 | W.DCSUMMARY ---
Discharge Summary
Discharge Data
Date of Admission: 04/24/25
Date of Discharge: 04/25/25
-
Pending Results: No
Hospital Course
70 years old female presented with sudden onset of confusion, memory impairment. No history of headache. No fever or chills. She denied dizziness, vision changes, speech difficulty, numbness or weakness. She kept repeating same questions.
Patient was admitted to the hospital. Neurology was consulted. It felt that a sudden change in mental status could be secondary to transient global amnesia or metabolic encephalopathy. Patient underwent brain imaging studies including MRI that
did not show stroke. Patient started to go back to baseline. She felt completely normal with mandaen of normal cognitive function. Neurologist recommended to take vitamin B12 supplement. Patient was taking 2.5 mg of Eliquis twice a day for
history of DVT. Neurologist recommended to increase to therapeutic dose of 5 mg twice a day. Primary hop trainer Dr. Ramesh agreed to the plan. Repeat D-dimer was 1.8 which was lower than outpatient D-dimer which was 7.3. Patient did not have
chest pain or hypoxia. She remained hemodynamically stable. She did not have skilled needs. Patient was discharged home in stable condition.
Discharge Plan
-
Patient Disposition: Home (Routine Discharge)
Discharge Diagnosis/Procedures: You are seen by neurologist. Likely an episode of transient global amnesia. You had MRI of the brain that did not show stroke. Recommendations were discussed with neurologist and hematology, recommend to increase
Eliquis to 5 mg twice a day
Diet: As tolerated
Referrals:
Russell Turcios I., DO [Family Provider, Internal Medicine]
Pradeep Ramesh, [Active, Hematology / Oncology] - in three to four weeks
Prescriptions:
New
cyanocobalamin (vitamin B-12) [Vitamin B-12] 500 mcg Tablet
1,000 mcg PO DAILY Qty: 30 0RF
Eliquis 5 mg tablet
5 mg PO BID Qty: 60 0RF
Continued
loratadine 10 MG tablet
10 mg PO DAILY Qty: 0
fluticasone propionate 1 SPRAY spray,suspension
2 spray intranasal DAILY
acyclovir 800 MG tablet
800 mg PO DAILY
cholecalciferol (vitamin D3) 2,000 UNITS tablet
2,000 unit PO DAILY
buspirone 15 mg Tablet
15 mg PO DAILY
Linzess 290 mcg Capsule
290 mcg PO DAILY
levothyroxine 25 mcg Tablet
25 mcg PO DAILY
buspirone 7.5 mg Tablet
7.5 mg PO MOWEFR@1900
melatonin 5 mg Tablet
5 mg PO HS
ascorbic acid (vitamin C) [Vitamin C] 1,000 mg Tablet
1,000 mg PO DAILY
therapeutic multivitamin Tablet
1 tab PO DAILY
pantoprazole [Protonix] 20 mg Tablet,Delayed Release (Dr/Ec)
20 mg PO DAILY
magnesium oxide 400 mg magnesium Tablet
400 mg PO MOWEFR
sulindac 200 mg Tablet
200 mg PO DAILY
quetiapine [Seroquel] 25 mg Tablet
75 mg PO HS
losartan 25 mg Tablet
25 mg PO DAILY
Discontinued
Eliquis 2.5 mg Tablet
2.5 mg PO BID
Discharge Orders:
Discharge Patient (As Directed); Ordered 04/25/25
Ordered By: Taiwo Russell
Discharge Date and Time
Discharge Date/Time: 04/25/25 14:03
Print Language: BURKINAN
== END 2025-04-25 14:03 | disposition home or self-care (01) ==
LOC: 3 WEST ACU 15:22
PROVIDERS: ADMITTING PHYSICIAN Student in an Organized Health Care Education/Training Program; ATTENDING PHYSICIAN Internal Medicine; CONSULT PHYSICIAN Psychiatry & Neurology Neurology; EMERGENCY PHYSICIAN Emergency Medicine; FAMILY PHYSICIAN Internal Medicine
DX: G45.4 Transient global amnesia (principal); E87.1 Hypo-osmolality and hyponatremia; Z86.718 Personal history of other venous thrombosis and embolism; Z86.711 Personal history of pulmonary embolism; Z79.899 Other long term (current) drug therapy; E03.9 Hypothyroidism, unspecified; F41.9 Anxiety disorder, unspecified; K21.9 Gastro-esophageal reflux disease without esophagitis; Z79.01 Long term (current) use of anticoagulants; I10 Essential (primary) hypertension
CPT/HCPCS: 0042T; 70450; 70496; 70498; 70551; 80048; 80053; 80061; 80306; 81003; 81015; 82077; 82607; 82728; 82746; 82962; 83036; 83735; 83935; 84300; 84443; 85025; 85027; 85379; 85652; 93005; 97162; 97166; 99285; G0378; Q9967

== ENCOUNTER → 2025-08-05 14:22 | Outpatient (REF) | payer OTHER, SELFPAY | LOC: HWRAD 14:22 | PROVIDERS: ATTENDING PHYSICIAN Orthopaedic Surgery Hand Surgery; FAMILY PHYSICIAN Nurse Practitioner Family | DX: M19.011 Primary osteoarthritis, right shoulder (principal) | CPT/HCPCS: 73200 ==